=== PATIENT | female | born 1980 | race Hispanic/Latino ===

== ENCOUNTER 2024-03-31 23:52 | Emergency (ER) | payer SELFPAY ==
[~2024-03-31] VITALS: Ht 149.9 cm; Wt 81.6 kg
[2024-04-01 00:22] VITALS: PULSE 76; RESP 18; TEMP 98; O2SAT 99
== END 2024-04-01 00:45 | disposition home or self-care (01) ==
LOC: ER 04-01 00:10
DX: R20.2 Paresthesia of skin (principal)
CPT/HCPCS: 99283